=== PATIENT | male | born 1990 | race Two or more races ===

== ENCOUNTER 2022-01-07 23:12 | Emergency (ER) | payer OTHER ==
[2022-01-07 23:22] VITALS: BP 126/69
== END 2022-01-08 00:34 | disposition left against medical advice (07) ==
LOC: ED 23:12
DX: Z53.21 Procedure and treatment not carried out due to patient leaving prior to being seen by health care provider (principal)

== ENCOUNTER 2022-07-08 12:14 | Emergency (ER) | payer OTHER ==
[2022-07-08 12:43] VITALS: BP 106/89
[2022-07-08 14:19] LABS: B. PARAPERTUSSIS- RESP PCR PAN NOT DETECTED; B. PERTUSSIS- RESP PCR PANEL NOT DETECTED; C. PNEUMONIAE- RESP PCR PANEL NOT DETECTED; CORONAVIRUS 229E-RESP PCR NOT DETECTED; CORONAVIRUS HKU1-RESP PCR NOT DETECTED; CORONAVIRUS NL63-RESP PCR NOT DETECTED; CORONAVIRUS OC43-RESP PCR NOT DETECTED; HUMAN METAPNEUMOVIRUS NOT DETECTED; INFLUENZA A- RESP PCR PANEL NOT DETECTED; INFLUENZA B - RESP PCR PANEL NOT DETECTED; M. PNEUMONIAE- RESP PCR PANEL NOT DETECTED; PARAINFLUENZA VIRUS 1 DETECTED; PARAINFLUENZA VIRUS 2 NOT DETECTED; PARAINFLUENZA VIRUS 3 NOT DETECTED; PARAINFLUENZA VIRUS 4 NOT DETECTED; RHINOVIRUS/ENTEROVIRUS NOT DETECTED; RSV- RESP PCR PANEL NOT DETECTED; SARS-CoV-2 -RESP PCR PANEL NOT DETECTED
--- NOTE | 2022-07-08 14:31 | ED Physician Documentation ---
PD HPI URI - Stated complaint Stated Complaint: FLU,FEVER - Chief complaint Chief Complaint: Fever - History obtained from History obtained from: Patient - History of Present Illness Timing - onset: How many days ago (2) Timing duration: Days (2) Timing details: Abrupt onset, Still present Associated symptoms: Fever, Nasal congestion, Sore throat (and has sore inner lower lip.), Dry cough. No: NVD Contributing factors: Sick contact (his child and have similar illness starting before him.) Improves by: No: Medication (OTC meds not helping with cough. Tylenol does help with fevers.) Similar symptoms before: Has not had sx before Recently seen: Not recently seen Review of Systems Constitutional: reports: Fever, Myalgias, Fatigue Nose: reports: Congestion Throat: reports: Oral lesions / sores (inner lower lip.) Respiratory: reports: Cough GI: reports: Nausea. denies: Vomiting, Diarrhea Musculoskeletal: denies: Neck pain Neurologic: reports: Headache. denies: Altered mental status PD PAST MEDICAL HISTORY - Past Medical History Past Medical History: No Cardiovascular: None Respiratory: None Endocrine/Autoimmune: None - Present Medications Home Medications: Ambulatory Orders Medication Instructions Recorded Confirmed Benzonatate [Tessalon] 100 mg PO TID PRN #20 cap 07/08/22 Ondansetron Odt [Zofran] 4 mg TL Q6H PRN #10 tablet 07/08/22 - Allergies Allergies/Adverse Reactions: Allergies Allergy/AdvReac Type Severity Reaction Status Date / Time No Known Drug Allergies Allergy Verified 07/08/22 12:43 PD ED PE NORMAL - Vitals Vital signs reviewed: Yes - General General: Alert and oriented X 3, No acute distress, Well developed/nourished - HEENT HEENT: Ears normal, Moist mucous membranes, Pharynx benign (inner lower lip with single 2-3mm ulcerative sore. No sores at asad border. palatte normal. ) - Neck Neck: Supple, no meningeal sign, No adenopathy - Cardiac Cardiac: RRR, No murmur - Respiratory Respiratory: Clear bilaterally - Abdomen Abdomen: Non tender, No organomegaly - Derm Derm: Normal color, Warm and dry, No rash - Extremities Extremities: Normal ROM s pain - Neuro Neuro: Alert and oriented X 3, No motor deficit, Normal speech Results - Vitals Vitals: Oxygen O2 Source Room air - Labs Labs: Laboratory Tests 07/08/22 12:41 Nasal Adenovirus (PCR) NOT DETECTED Nasal B. parapertussis DNA (PCR) NOT DETECTED Nasal Coronavir 229E PCR NOT DETECTED Nasal Coronavir HKU1 PCR NOT DETECTED Nasal Coronavir NL63 PCR NOT DETECTED Nasal Coronavir OC43 PCR NOT DETECTED Nasal Enterovir/Rhinovir PCR NOT DETECTED Nasal Influenza B PCR NOT DETECTED Nasal Influenza A PCR NOT DETECTED Nasal Parainfluen 1 PCR DETECTED A Nasal Parainfluen 2 PCR NOT DETECTED Nasal Parainfluen 3 PCR NOT DETECTED Nasal Parainfluen 4 PCR NOT DETECTED Nasal RSV (PCR) NOT DETECTED Nasal B.pertussis DNA PCR NOT DETECTED Nasal C.pneumoniae (PCR) NOT DETECTED Rayray Human Metapneumo PCR NOT DETECTED Nasal M.pneumoniae (PCR) NOT DETECTED Nasal SARS-CoV-2 (PCR) NOT DETECTED PD MEDICAL DECISION MAKING - ED course Complexity details: reviewed results, considered differential, d/w patient Departure - Departure Disposition: 01 Home, Self Care Clinical Impression: Viral upper respiratory infection Condition: Stable Record reviewed to determine appropriate education?: Yes Instructions: ED Upper Resp Infec No Abx Tx Follow-Up: RAYRAY Brooke [Provider Group] Prescriptions: Benzonatate [Tessalon] 100 mg PO TID PRN #20 cap PRN Reason: Cough Ondansetron Odt [Zofran] 4 mg TL Q6H PRN #10 tablet PRN Reason: Nausea / Vomiting Comments: Your respiratory PCR viral test was positive for a common virus called parainfluenza 1. This typically causes head and chest cold type symptoms like you are having. The lip sore you have on the inside of your lip is common enough with that. There is no antiviral medication per se. We typically treat symptoms. Given your main symptoms, we can try to help with your nausea with ondansetron every 6 hours. Benzonatate can be used for your cough. Try to stay well-hydrated otherwise and continue with some Tylenol every 4-6 hours for fevers or pains. I would anticipate being sick for another 3 to 4 days at least. I provided a work note for that. I sent your prescriptions to [facility] pharmacy in [place]. Forms: Activity restrictions Discharge Date/Time: 07/08/22 15:51
== END 2022-07-08 15:51 | disposition home or self-care (01) ==
LOC: ED 12:14
DX: J06.9 Acute upper respiratory infection, unspecified (principal); Z20.822 Contact with and (suspected) exposure to COVID-19
CPT/HCPCS: 87633; 99283

== ENCOUNTER 2023-04-02 10:37 | Outpatient (CLI) | payer OTHER ==
--- NOTE | 2023-04-02 14:45 | MRI Report ---
PROCEDURE: LUMBAR SPINE WO INDICATIONS: LOW BACK PAIN TECHNIQUE: Noncontrast sagittal T1 spin echo and T2 fast echo, sagittal STIR, axial T1 and T2 fast spin echo thr ough the lumbar spine. In cases with scoliosis, additional coronal T2 fast spin echo may be performe d. COMPARISON: CT lumbar spine dated 02/25/2023. FINDINGS: Image quality: Excellent. Alignment and Curvature: There is normal bony alignment. Bone Marrow: Marrow is of normal overall signal. No acute vertebral body compression fractures. Spinal Cord: Conus medullaris terminates at the L1-L2 level. Visualized cord demonstrates normal si gnal and size. Paraspinous Soft Tissues: No paravertebral masses. T12-L1: Normal in appearance. L1-L2: Normal in appearance. L2-L3: Normal in appearance. L3-L4: Normal in appearance. L4-L5: Minimal central posterior disc protrusion. Mild facet hypertrophy. Mild epidural lipomatosis . Mild canal stenosis. No foraminal stenosis. L5-S1: Posterior annulus tear. Minimal right paracentral disc protrusion. There is mild facet hyper trophy. Very minimal posterior deviation of the right S1 nerve root in the right lateral recess. Bord bladimir canal stenosis. No significant foraminal stenosis. IMPRESSION: 1. At L4-L5, there is minimal central posterior disc protrusion. There is mild canal stenosis. 2. At L5-S1, there is posterior annulus tear plus minimal right paracentral disc protrusion with mini mal posterior deviation of the right S1 nerve root in the right lateral recess. There is borderline c anal stenosis. 3. Mild lower lumbar facet arthropathy. Reviewed by: Sha Jacobsen MD on 04/02/2023 2:44 PM PDT Approved by: Sha Jacobsen MD on 04/02/2023 2:44 PM PDT Station ID: [id number]
== END 2023-04-02 10:38 | disposition home or self-care (01) ==
LOC: DI 10:37
PROVIDERS: ATTEND Physician Assistant
DX: M48.061 Spinal stenosis, lumbar region without neurogenic claudication (principal); M51.16 Intervertebral disc disorders with radiculopathy, lumbar region; M51.17 Intervertebral disc disorders with radiculopathy, lumbosacral region; M48.07 Spinal stenosis, lumbosacral region; M47.26 Other spondylosis with radiculopathy, lumbar region